=== PATIENT | female | born 1985 | race Caucasian/White ===

== ENCOUNTER → 2018-02-03 | Outpatient (CLI) | payer OTHER ==
[~2018-02-03] MED LIST: AMOCLA875 PO; ARIP10 PO; ASPI325 PO; BENZ100A PO; CLON.2 PO; CLOP75 PO; DICL75ER PO; DOXY100 PO; DULO30 PO; FISH1000 PO; GABA600 PO; HYDACE5 PO; LISHYD1012 PO; METO25ER PO; MULVITMINE PO; Neurontin 300300 MG PO; Norco 5-325 Ta1 EACH PO; OXYACE5T PO; OXYACE7.5T PO; PENVK500 PO; PRED20 PO; Percocet 5-3251 EACH PO; Pravachol40 MG PO; QUET100; RXHYDACE PO; RXPENVK250 PO; SERT100; VENL150ER PO; VITAMIN D250000 UNIT PO
[2018-02-03 13:34] LABS: BASOPHILS ABSOLUTE AUTO 0.06 K/mm3 (0.00-0.23); BASOPHILS PERCENT AUTO 1 % (0-2); EOSINOPHILS PERCENT AUTO 2 % (0-6); Hematocrit 36.8 % (33.0-51.0); Hemoglobin 12.4 g/dL (11.5-16.0); IMMATURE GRAN ABSOLUTE AUTO 0.03 K/mm3 (0.00-0.10); IMMATURE GRAN PERCENT AUTO 0 % (0-1); LYMPHOCYTES PERCENT AUTO 43 % (21-46); MONOCYTES ABSOLUTE AUTO 0.52 K/mm3 (0.16-1.47); MONOCYTES PERCENT AUTO 6 % (4-13); Mean Corpuscular HGB 30.4 pg (26.0-34.0); Mean Corpuscular HGB Conc 33.7 g/dL (31.5-36.5); Mean Corpuscular Volume 90 fL (80-100); Mean Platelet Volume 9.2 fL (9.1-12.4); NEUTROPHILS ABSOLUTE AUTO 4.35 K/mm3 (1.96-9.15); NEUTROPHILS PERCENT AUTO 48 % (41-73); Platelet Count 426 K/mm3 (150-400); RDW Coefficient Variation 13.8 % (11.7-14.2); RDW Standard Deviation 45.4 fL (35.1-46.3); Red Blood Cell Count 4.08 M/mm3 (3.80-5.20); White Blood Cell Count 9.06 K/mm3 (4.00-11.30)
[2018-02-03 14:23] LABS: Anion Gap 11 mmol/L (6-16); Blood Urea Nitrogen 13 mg/dL (8-24); Bun/Creatinine Ratio 12.6 (12.0-20.0); CO2, Blood 24 mmol/L (21-32); Calcium, Blood 8.7 mg/dL (8.5-10.1); Chloride, Blood 102 mmol/L (98-108); Creatinine, Blood 1.03 mg/dL (0.40-1.00); Glomerular Filtration Rate >60 (60-); Glucose, Blood 89 mg/dL (70-99); Potassium, Blood 3.8 mmol/L (3.5-5.5); Sodium, Blood 137 mmol/L (136-145)
[2018-02-03 14:26] LABS: Troponin I <0.017 ng/mL (0.000-0.040)
== END ==
LOC: LAB EV 13:25 → LAB SHORT 13:25
PROVIDERS: Family Medicine
DX: R07.9 Chest pain, unspecified (principal)
CPT/HCPCS: 80048; 84484; 85025; 85379

== ENCOUNTER 2018-05-07 17:10 | Emergency (ER) | payer OTHER ==
[~2018-05-07] VITALS: Ht 157.5 cm; Wt 90.7 kg
[~2018-05-07 17:10] MED LIST changes: +TOPIRAMATE ER100 MG PO
[2018-05-07 18:23] LABS: Albumin, Blood 3.7 g/dL (3.4-5.0); Bilirubin, Total 0.2 mg/dL (0.1-1.0); Bun/Creatinine Ratio 14.5 (12.0-20.0); Calcium, Blood 8.7 mg/dL (8.5-10.1); Creatinine, Blood 1.17 mg/dL (0.40-1.00); Globulin, Blood 3.8 g/dL (2.2-4.0); Potassium, Blood 3.8 mmol/L (3.5-5.5); Total Protein, Blood 7.5 g/dL (6.4-8.2)
[2018-05-07 18:44] LABS: BASOPHILS ABSOLUTE AUTO 0.07 K/mm3 (0.00-0.23); BASOPHILS PERCENT AUTO 1 % (0-2); EOSINOPHILS ABSOLUTE AUTO 0.26 K/mm3 (0.00-0.68); EOSINOPHILS PERCENT AUTO 2 % (0-6); Hematocrit 32.3 % (33.0-51.0); Hemoglobin 10.7 g/dL (11.5-16.0); IMMATURE GRAN ABSOLUTE AUTO 0.06 K/mm3 (0.00-0.10); IMMATURE GRAN PERCENT AUTO 0 % (0-1); LYMPHOCYTES ABSOLUTE AUTO 5.07 K/mm3 (0.84-5.20); LYMPHOCYTES PERCENT AUTO 35 % (21-46); MONOCYTES PERCENT AUTO 6 % (4-13); Mean Corpuscular HGB Conc 33.1 g/dL (31.5-36.5); Mean Corpuscular Volume 94 fL (80-100); Mean Platelet Volume 8.7 fL (9.1-12.4); NEUTROPHILS ABSOLUTE AUTO 8.41 K/mm3 (1.96-9.15); NEUTROPHILS PERCENT AUTO 57 % (41-73); Platelet Count 436 K/mm3 (150-400); RDW Coefficient Variation 13.5 % (11.7-14.2); RDW Standard Deviation 46.5 fL (35.1-46.3); Red Blood Cell Count 3.45 M/mm3 (3.80-5.20); White Blood Cell Count 14.67 K/mm3 (4.00-11.30)
[2018-05-07] MEDS ORDERED: Cyclobenzaprine5 MG PO (21:23)
== END 2018-05-07 21:36 | disposition home or self-care (01) ==
LOC: ER 17:10
PROVIDERS: Emergency Medicine
DX: G89.29 Other chronic pain (principal); M25.551 Pain in right hip; I25.10 Atherosclerotic heart disease of native coronary artery without angina pectoris; F32.9 Major depressive disorder, single episode, unspecified; F17.210 Nicotine dependence, cigarettes, uncomplicated; Z88.5 Allergy status to narcotic agent; Z79.82 Long term (current) use of aspirin; Z79.899 Other long term (current) drug therapy
CPT/HCPCS: 72193; 80053; 83690; 85025; 96374; 99284-25; J1885; Q9967

== ENCOUNTER → 2018-10-09 | Outpatient (CLI) | payer OTHER ==
[~2018-10-09] MED LIST changes: +BUDE6HFA INH; +Cyclobenzaprine5 MG PO; +Flovent Disku250 MCG INH; +HYDHCL25 PO; +HYDR1TAB94 PO; +ONE DAILY FOR1 EACH PO; +SERT50 PO; +ZESTORETIC 20-1 EACH PO
== END ==
LOC: LAB SHORT 13:00 → PLD 13:00
DX: L60.2 Onychogryphosis (principal); B35.1 Tinea unguium
CPT/HCPCS: 88305; 88312

== ENCOUNTER 2019-03-15 20:15 | Emergency (ER) | payer OTHER ==
[~2019-03-15] VITALS: Ht 154.9 cm; Wt 92.1 kg
[~2019-03-15 20:15] MED LIST changes: +AMIT25 PO; +CYCL10 PO; +Cymbalta60 MG; +FENO160 PO; +FISH OIL 1,0001 EACH PO; +Naprosyn500 MG PO
[2019-03-15] MEDS ORDERED: Norco 5-325 Ta1 EACH PO (20:54)
[2019-03-15] MEDS ORDERED: LIDO700A20 TOP (20:55)
== END 2019-03-15 21:13 | disposition home or self-care (01) ==
LOC: ER 20:15
DX: M54.5 Low back pain (principal); V49.9XXA Car occupant (driver) (passenger) injured in unspecified traffic accident, initial encounter; Z79.899 Other long term (current) drug therapy; Z79.82 Long term (current) use of aspirin; F32.9 Major depressive disorder, single episode, unspecified; I25.10 Atherosclerotic heart disease of native coronary artery without angina pectoris; F17.210 Nicotine dependence, cigarettes, uncomplicated
CPT/HCPCS: 99283; A9270

== ENCOUNTER 2019-07-18 11:29 | Inpatient (IN) | payer OTHER ==
[~2019-07-18] VITALS: Ht 154.9 cm; Wt 101.3 kg
[~2019-07-18 11:29] MED LIST changes: -Cymbalta60 MG; +Cymbalta60 MG PO; +LIDO700A20 TOP; +TOPI100 PO; -TOPIRAMATE ER100 MG PO
[2019-07-18 12:03] LABS: BASOPHILS ABSOLUTE AUTO 0.06 K/mm3 (0.00-0.23); BASOPHILS PERCENT AUTO 1 % (0-2); EOSINOPHILS ABSOLUTE AUTO 0.64 K/mm3 (0.00-0.68); EOSINOPHILS PERCENT AUTO 7 % (0-6); Hematocrit 32.2 % (33.0-51.0); IMMATURE GRAN ABSOLUTE AUTO 0.03 K/mm3 (0.00-0.10); IMMATURE GRAN PERCENT AUTO 0 % (0-1); LYMPHOCYTES ABSOLUTE AUTO 4.41 K/mm3 (0.84-5.20); LYMPHOCYTES PERCENT AUTO 47 % (21-46); MONOCYTES ABSOLUTE AUTO 0.54 K/mm3 (0.16-1.47); MONOCYTES PERCENT AUTO 6 % (4-13); Mean Corpuscular HGB 27.5 pg (26.0-34.0); Mean Corpuscular HGB Conc 31.1 g/dL (31.5-36.5); Mean Corpuscular Volume 89 fL (80-100); Mean Platelet Volume 9.1 fL (9.1-12.4); NEUTROPHILS ABSOLUTE AUTO 3.66 K/mm3 (1.96-9.15); NEUTROPHILS PERCENT AUTO 39 % (41-73); Platelet Count 360 K/mm3 (150-400); RDW Coefficient Variation 13.9 % (11.7-14.2); RDW Standard Deviation 45.1 fL (35.1-46.3); Red Blood Cell Count 3.64 M/mm3 (3.80-5.20); White Blood Cell Count 9.34 K/mm3 (4.00-11.30)
[2019-07-18 12:21] LABS: Acetaminophen, Random <2.0 ug/mL (10.0-30.0); Alanine Aminotransfer (ALT/SGP 40 U/L (12-78); Albumin, Blood 3.4 g/dL (3.4-5.0); Alk Phos 72 U/L (50-136); Anion Gap 8 mmol/L (6-16); Aspartate Aminotrans (AST/SGOT 34 U/L (12-37); Bilirubin, Total 0.1 mg/dL (0.1-1.0); Blood Urea Nitrogen 47 mg/dL (8-24); Bun/Creatinine Ratio 12.7 (12.0-20.0); CO2, Blood 20 mmol/L (21-32); Calcium, Blood 8.3 mg/dL (8.5-10.1); Chloride, Blood 110 mmol/L (98-108); Ethanol (Alcohol), Blood, Med <3 mg/dL; Globulin, Blood 3.5 g/dL (2.2-4.0); Glomerular Filtration Rate 15 (60-); Glucose, Blood 100 mg/dL (70-99); Potassium, Blood 4.6 mmol/L (3.5-5.5); Salicylate <1.7 mg/dL (2.8-20.0); Sodium, Blood 138 mmol/L (136-145); Thyroxine (T4) 4.2 ug/dL (4.8-13.9); Total Protein, Blood 6.9 g/dL (6.4-8.2)
[2019-07-18 12:25] LABS: Thyroid Stimulating Hormone 0.833 uIU/mL (0.360-4.800)
[2019-07-18] MEDS ORDERED: BUSP5 PO (13:27)
[2019-07-18] MEDS ORDERED: VITAMIN D34000 UNIT PO (13:28)
[2019-07-18] MEDS ORDERED: PREG150 PO (13:30)
[2019-07-18] MEDS ORDERED: TRAM50 PO (13:30)
[2019-07-18] MEDS ORDERED: ALBU90OI INH (13:32)
[2019-07-18] MEDS ORDERED: VIRT-PHOS 250250 MG PO (13:33)
[2019-07-18 13:41] LABS: Magnesium, Blood 1.6 mg/dL (1.6-2.4); Phosphorus, Blood 4.8 mg/dL (2.5-4.9); Troponin I <0.015 ng/mL (0.000-0.040)
[2019-07-18 15:50] LABS: Source, Urine Clean Catch
[2019-07-18] MEDS ORDERED: Vitamin B-121000 MCG PO (15:50)
[2019-07-18 15:54] LABS: Appearance, Urine Clear (Clear); Bilirubin, Urine Neg (Neg); Blood, Urine 1+ (Neg); Color, Urine Yellow (P-Yellow); Glucose Qualitative, Urine Neg (Neg); Ketones, Urine Neg (Neg); Leukocyte Esterase, Urine 1+ (Neg); Nitrite, Urine Neg (Neg); Protein, Urine Neg (Neg); Specific Gravity, Urine 1.015 (1.003-1.022); Urobilinogen, Urine NORM (Normal)
[2019-07-18 16:09] LABS: U Amphetamine Screen Not Detected; U Barbituate Screen Not Detected; U Benzodiazapine Screen Not Detected; U Buprenorphine Screen Not Detected; U Cannabinoids Screen Not Detected; U Cocaine Screen Not Detected; U Methadone Screen Not Detected; U Methamphetamine Screen Not Detected; U Opiates Screen Not Detected; U Oxycodone Screen Not Detected; U Phencyclidine Screen Not Detected; U Propoxyphene Screen Not Detected
[2019-07-18 16:12] LABS: Bacteria Mod /hpf; Red Blood Cells, Urine 0-2 /hpf (0-2); Squamous Epithelial Cells Few /hpf (Few)
--- NOTE | 2019-07-18 17:03 | NUR ---
SHIFT SUMMARY RECIEVED REPORT FROM MONTY FAULKNER RN, AT 1440. PATIENT ARRIVED TO ROOM 346 AT 1458 AND TRANSFERED INDEPENDENTLY TO HOSPITAL BED. COMPLETED ADMIT ASSESSMENT, MEDICAL HISTORY AND MEDICATION REQ WITH PATIENT'S ASSISTANCE. THE PATIENT IS ALERT AND ORIENTED TO PERSON, PLACE, AND SITUATION. IV FLUIDS RUNNING ORDERED. ROBBY HOSE TO BLE. PATIENT INDEPENDENT IN ROOM. COOPERATIVE. ABLE TO MAKE NEEDS KNOWN.
--- NOTE | 2019-07-19 02:45 | NUR ---
Hospitalist call Called to update hospitalist about positive UA results which were still pending at the time of last provider note. Patient is remains slightly confused, as she was not oriented to her age at 20:00 neuro check, and was disoriented to time at 00:00 neuro check. She also reported burning with urination. No new orders received at the time of call.
--- NOTE | 2019-07-19 04:31 | NUR ---
Shift Summary Patient slept well overnight. Her orientation seemed to be a little off as previously noted.
[2019-07-19 04:48] LABS: Hematocrit 31.9 % (33.0-51.0); Hemoglobin 9.7 g/dL (11.5-16.0); Mean Corpuscular HGB Conc 30.4 g/dL (31.5-36.5); Mean Corpuscular Volume 89 fL (80-100); Mean Platelet Volume 9.2 fL (9.1-12.4); Platelet Count 398 K/mm3 (150-400); RDW Coefficient Variation 14.1 % (11.7-14.2); RDW Standard Deviation 45.8 fL (35.1-46.3); Red Blood Cell Count 3.59 M/mm3 (3.80-5.20); White Blood Cell Count 7.95 K/mm3 (4.00-11.30)
[2019-07-19 05:19] LABS: Albumin, Blood 3.2 g/dL (3.4-5.0); Anion Gap 5 mmol/L (6-16); Blood Urea Nitrogen 33 mg/dL (8-24); CO2, Blood 22 mmol/L (21-32); Calcium, Blood 8.3 mg/dL (8.5-10.1); Chloride, Blood 117 mmol/L (98-108); Creatinine, Blood 2.06 mg/dL (0.40-1.00); Glomerular Filtration Rate 29 (60-); Glucose, Blood 76 mg/dL (70-99); Potassium, Blood 5.1 mmol/L (3.5-5.5); Sodium, Blood 144 mmol/L (136-145)
--- NOTE | 2019-07-19 17:00 | NUR ---
PATIENT A/OX4 THIS SHIFT. SLEPT MOST OF THE DAY. SLEEPS VERY HARD AND DIFFICULT TO WAKE AT TIMES. REPORTS RIB/BACK PAIN THAT IS CHRONIC. TRAMADOL GIVEN WITH LITTLE RELIEF PER PATIENT. 20G IV TO L FA, NS @ 150ML/HR INFUSING. TOLERATING RENAL DIET. VOIDING WELL. UP INDPENDENTLY IN ROOM. USES CALL LIGHT APPROPRIATELY FOR ASSISTANCE. DENIES ANY HALLUCINATIONS THIS SHIFT.
--- NOTE | 2019-07-20 04:14 | NUR ---
PT up indep in room . continues on IVF for ALFONSO and cooperative. On menses, urine pink with some clots present. PT states burning with urination. Denies visual or auditory hallucinations. has 2 Children. Spouse in and supportive. Plans to dc home on DC. Chronic pain, takes atarax PRN for anxiety, held HS scheduled dose. Flexeril 10 mg also held due to sedation.
[2019-07-20 08:55] LABS: Albumin, Blood 2.9 g/dL (3.4-5.0); Anion Gap 4 mmol/L (6-16); Blood Urea Nitrogen 18 mg/dL (8-24); CO2, Blood 23 mmol/L (21-32); Calcium, Blood 8.2 mg/dL (8.5-10.1); Chloride, Blood 117 mmol/L (98-108); Glomerular Filtration Rate 42 (60-); Glucose, Blood 82 mg/dL (70-99); Phosphorus, Blood 2.9 mg/dL (2.5-4.9); Potassium, Blood 4.6 mmol/L (3.5-5.5); Sodium, Blood 144 mmol/L (136-145)
--- NOTE | 2019-07-20 12:05 | NUR ---
DISCHARGE NOTE PATIENT AMBULATED SELF OUT OF FACILITY. STATED WAS PICKING HER UP AT MAIN ENTRANCE. IV REMOVED. NO ACUTE ISSUES NOTED.
== END 2019-07-20 11:41 | disposition home or self-care (01) | DRG 682 ==
LOC: ER 11:29 → MEDS 11:30 → ENPENDDIS 07-20 11:21 → MEDS 07-20 11:41
PROVIDERS: Emergency Medicine; ADMIT Internal Medicine
DX: N17.9 Acute kidney failure, unspecified (principal); G92 Toxic encephalopathy; E87.2 Acidosis; E86.0 Dehydration; I95.9 Hypotension, unspecified; F32.9 Major depressive disorder, single episode, unspecified; G89.4 Chronic pain syndrome; M54.9 Dorsalgia, unspecified; J44.9 Chronic obstructive pulmonary disease, unspecified; E78.5 Hyperlipidemia, unspecified; G44.89 Other headache syndrome; I25.10 Atherosclerotic heart disease of native coronary artery without angina pectoris; Z95.5 Presence of coronary angioplasty implant and graft; Z79.82 Long term (current) use of aspirin; Z79.899 Other long term (current) drug therapy
CPT/HCPCS: 36415; 71046; 80053; 80069; 81001; 81025; 82550; 83735; 84100; 84436; 84443; 84484; 84703; 85025; 85027; 87086; 93005; 93010; 94640; 94760; 96360; 99285-25; G0480; J7030

== ENCOUNTER → 2019-12-23 | Outpatient (CLI) | payer OTHER ==
[~2019-12-23] MED LIST changes: +ALBU90OI INH; +BUSP5 PO; +PREG150 PO; +TRAM50 PO; +VIRT-PHOS 250250 MG PO; +VITAMIN D34000 UNIT PO; +Vitamin B-121000 MCG PO
== END | disposition home or self-care (01) ==
LOC: LAB SHORT 19:44 → LAB 19:44
DX: J02.9 Acute pharyngitis, unspecified (principal)
CPT/HCPCS: 87081

== ENCOUNTER 2022-05-11 18:47 | Emergency (ER) | payer OTHER ==
[~2022-05-11] VITALS: Ht 157.5 cm; Wt 108.9 kg
[2022-05-11 20:30] LABS: BASOPHILS PERCENT AUTO 1 % (0-2); EOSINOPHILS ABSOLUTE AUTO 0.16 K/mm3 (0.00-0.68); EOSINOPHILS PERCENT AUTO 1 % (0-6); Hematocrit 41.6 % (33.0-51.0); Hemoglobin 14.2 g/dL (11.5-16.0); IMMATURE GRAN ABSOLUTE AUTO 0.05 K/mm3 (0.00-0.10); IMMATURE GRAN PERCENT AUTO 0 % (0-1); LYMPHOCYTES PERCENT AUTO 32 % (21-46); MONOCYTES ABSOLUTE AUTO 0.77 K/mm3 (0.16-1.47); MONOCYTES PERCENT AUTO 5 % (4-13); Mean Corpuscular HGB 29.2 pg (26.0-34.0); Mean Corpuscular HGB Conc 34.1 g/dL (31.5-36.5); Mean Corpuscular Volume 86 fL (80-100); Mean Platelet Volume 9.9 fL (9.1-12.4); NEUTROPHILS ABSOLUTE AUTO 8.91 K/mm3 (1.96-9.15); NEUTROPHILS PERCENT AUTO 61 % (41-73); Platelet Count 516 K/mm3 (150-400); RDW Coefficient Variation 12.8 % (11.7-14.2); RDW Standard Deviation 39.8 fL (35.1-46.3); Red Blood Cell Count 4.86 M/mm3 (3.80-5.20); White Blood Cell Count 14.69 K/mm3 (4.00-11.30)
[2022-05-11 20:48] LABS: Albumin, Blood 4.1 g/dL (3.4-5.0); Bilirubin, Total 0.3 mg/dL (0.1-1.0); Bun/Creatinine Ratio 10.5 (12.0-20.0); Calcium, Blood 9.6 mg/dL (8.5-10.1); Creatinine, Blood 0.76 mg/dL (0.40-1.00); Globulin, Blood 4.2 g/dL (2.2-4.0); Potassium, Blood 3.5 mmol/L (3.5-5.5); Total Protein, Blood 8.3 g/dL (6.4-8.2)
[2022-05-11] MEDS ORDERED: Aspir 8181 MG PO (22:40)
[2022-05-11] MEDS ORDERED: Robaxin750 MG PO (22:40)
== END 2022-05-11 23:10 | disposition home or self-care (01) ==
LOC: ER 18:47
PROVIDERS: Student in an Organized Health Care Education/Training Program
DX: R07.89 Other chest pain (principal); M62.830 Muscle spasm of back; I25.10 Atherosclerotic heart disease of native coronary artery without angina pectoris; J44.9 Chronic obstructive pulmonary disease, unspecified; E78.5 Hyperlipidemia, unspecified; F17.210 Nicotine dependence, cigarettes, uncomplicated; Z79.82 Long term (current) use of aspirin; Z79.899 Other long term (current) drug therapy; Z95.5 Presence of coronary angioplasty implant and graft
CPT/HCPCS: 36415; 71045; 80053; 84484; 85025; 93005; 93010; A9270

== ENCOUNTER → 2022-07-31 | Outpatient (CLI) | payer OTHER ==
[~2022-07-31] MED LIST changes: +Aspir 8181 MG PO; +Robaxin750 MG PO
[2022-07-31 18:39] LABS: BASOPHILS ABSOLUTE AUTO 0.09 K/mm3 (0.00-0.23); BASOPHILS PERCENT AUTO 1 % (0-2); EOSINOPHILS ABSOLUTE AUTO 0.09 K/mm3 (0.00-0.68); EOSINOPHILS PERCENT AUTO 1 % (0-6); Hematocrit 38.7 % (33.0-51.0); Hemoglobin 13.2 g/dL (11.5-16.0); IMMATURE GRAN ABSOLUTE AUTO 0.03 K/mm3 (0.00-0.10); IMMATURE GRAN PERCENT AUTO 0 % (0-1); LYMPHOCYTES ABSOLUTE AUTO 3.15 K/mm3 (0.84-5.20); LYMPHOCYTES PERCENT AUTO 26 % (21-46); MONOCYTES ABSOLUTE AUTO 0.58 K/mm3 (0.16-1.47); MONOCYTES PERCENT AUTO 5 % (4-13); Mean Corpuscular HGB 28.6 pg (26.0-34.0); Mean Corpuscular HGB Conc 34.1 g/dL (31.5-36.5); Mean Corpuscular Volume 84 fL (80-100); Mean Platelet Volume 9.6 fL (9.1-12.4); NEUTROPHILS ABSOLUTE AUTO 8.27 K/mm3 (1.96-9.15); NEUTROPHILS PERCENT AUTO 68 % (41-73); Platelet Count 458 K/mm3 (150-400); RDW Coefficient Variation 12.8 % (11.7-14.2); RDW Standard Deviation 39.1 fL (35.1-46.3); Red Blood Cell Count 4.61 M/mm3 (3.80-5.20); White Blood Cell Count 12.21 K/mm3 (4.00-11.30)
[2022-07-31 20:54] LABS: Alanine Aminotransfer (ALT/SGP 23 U/L (12-78); Albumin, Blood 3.9 g/dL (3.4-5.0); Alk Phos 107 U/L (50-136); Anion Gap 10 mmol/L (6-16); Aspartate Aminotrans (AST/SGOT 16 U/L (12-37); Bilirubin, Total 0.5 mg/dL (0.1-1.0); Blood Urea Nitrogen 6 mg/dL (8-24); Bun/Creatinine Ratio 7.9 (12.0-20.0); CHOL/HDL RATIO 6.9; CO2, Blood 23 mmol/L (21-32); Chloride, Blood 105 mmol/L (98-108); Cholesterol 199 mg/dL (50-200); Creatinine, Blood 0.76 mg/dL (0.40-1.00); Globulin, Blood 3.8 g/dL (2.2-4.0); Glomerular Filtration Rate 103 (60-); Glucose, Blood 92 mg/dL (70-99); HDL Cholesterol 29 mg/dL (>39); LDL/HDL RATIO 3.9; Low Density Lipoprotein Chol 112 mg/dL (0-110); Potassium, Blood 3.5 mmol/L (3.5-5.5); Sodium, Blood 138 mmol/L (136-145); Total Protein, Blood 7.7 g/dL (6.4-8.2); Triglycerides 289 mg/dL (30-140); Very Low Density Lipoprot Chol 57 mg/dL (6-28)
== END | disposition home or self-care (01) ==
LOC: LAB 13:05 → LAB SHORT 13:05
PROVIDERS: Physician Assistant
DX: Z13.1 Encounter for screening for diabetes mellitus (principal); E78.5 Hyperlipidemia, unspecified; Z79.899 Other long term (current) drug therapy
CPT/HCPCS: 80053; 80061; 82306; 83036; 84443; 85025

== ENCOUNTER 2023-08-27 19:58 | Emergency (ER) | payer OTHER ==
[~2023-08-27] VITALS: Ht 157.5 cm; Wt 90.7 kg
[2023-08-27 20:45] LABS: BASOPHILS ABSOLUTE AUTO 0.06 K/mm3 (0.00-0.23); BASOPHILS PERCENT AUTO 1 % (0-2); EOSINOPHILS ABSOLUTE AUTO 0.16 K/mm3 (0.00-0.68); EOSINOPHILS PERCENT AUTO 2 % (0-6); Hematocrit 37.5 % (33.0-51.0); Hemoglobin 12.2 g/dL (11.5-16.0); IMMATURE GRAN ABSOLUTE AUTO 0.02 K/mm3 (0.00-0.10); IMMATURE GRAN PERCENT AUTO 0 % (0-1); LYMPHOCYTES ABSOLUTE AUTO 3.76 K/mm3 (0.84-5.20); LYMPHOCYTES PERCENT AUTO 37 % (21-46); MONOCYTES ABSOLUTE AUTO 0.52 K/mm3 (0.16-1.47); MONOCYTES PERCENT AUTO 5 % (4-13); Mean Corpuscular HGB 29.3 pg (26.0-34.0); Mean Corpuscular HGB Conc 32.5 g/dL (31.5-36.5); Mean Corpuscular Volume 90 fL (80-100); Mean Platelet Volume 9.4 fL (9.1-12.4); NEUTROPHILS ABSOLUTE AUTO 5.54 K/mm3 (1.96-9.15); NEUTROPHILS PERCENT AUTO 55 % (41-73); Platelet Count 350 K/mm3 (150-400); RDW Coefficient Variation 13.1 % (11.7-14.2); RDW Standard Deviation 43.2 fL (35.1-46.3); Red Blood Cell Count 4.17 M/mm3 (3.80-5.20); White Blood Cell Count 10.06 K/mm3 (4.00-11.30)
[2023-08-27 21:05] LABS: Albumin, Blood 3.5 g/dL (3.4-5.0); Albumin/Globulin Ratio 0.9 (0.8-1.8); Bilirubin, Total 0.3 mg/dL (0.1-1.0); Bun/Creatinine Ratio 10.5 (12.0-20.0); Calcium, Blood 8.9 mg/dL (8.5-10.1); Creatinine, Blood 0.76 mg/dL (0.40-1.00); Globulin, Blood 3.7 g/dL (2.2-4.0); Potassium, Blood 4.1 mmol/L (3.5-5.5); Total Protein, Blood 7.2 g/dL (6.4-8.2)
[2023-08-27] MEDS ORDERED: BUSPIRONE HCL10 M6 PO (21:37)
[2023-08-27] MEDS ORDERED: BUPROPION HCL200 M1 PO (21:37)
[2023-08-27] MEDS ORDERED: CELEXA40 M9 PO (21:38)
[2023-08-27] MEDS ORDERED: ATOR40TA PO (21:38)
[2023-08-27] MEDS ORDERED: Prinivil10 MG PO (21:38)
[2023-08-27] MEDS ORDERED: ASPIRIN REGIMEN81 MG PO (21:38)
[2023-08-27] MEDS ORDERED: VITAMIN D362.5 MC1 PO (21:39)
[2023-08-27] MEDS ORDERED: TOPROL XL50 M1 PO (21:40)
[2023-08-28 00:30] VITALS: BP 196/113
== END 2023-08-28 00:45 | disposition home or self-care (01) ==
LOC: ER 19:58
PROVIDERS: Student in an Organized Health Care Education/Training Program
DX: R07.9 Chest pain, unspecified (principal); I10 Essential (primary) hypertension; I25.10 Atherosclerotic heart disease of native coronary artery without angina pectoris; Z95.5 Presence of coronary angioplasty implant and graft; Z79.899 Other long term (current) drug therapy; Z79.82 Long term (current) use of aspirin; F17.210 Nicotine dependence, cigarettes, uncomplicated
CPT/HCPCS: 71046; 80053; 84484; 85025; 93005; 93010; 96374; 99285-25; A9270; J1885

== ENCOUNTER → 2024-11-26 | Outpatient (CLI) | payer OTHER ==
[~2024-11-26] MED LIST changes: +ASPIRIN REGIMEN81 MG PO; +ATOR40TA PO; +BUPROPION HCL200 M1 PO; +BUSPIRONE HCL10 M6 PO; +CELEXA40 M9 PO; +Prinivil10 MG PO; +TOPROL XL50 M1 PO; +VITAMIN D362.5 MC1 PO
[2024-11-29 12:13] LABS: Alanine Aminotransfer (ALT/SGP 56 U/L (12-78); Albumin, Blood 3.6 g/dL (3.4-5.0); Alk Phos 89 U/L (50-136); Anion Gap 12 mmol/L (3-11); Aspartate Aminotrans (AST/SGOT 43 U/L (12-37); Bilirubin, Total 0.3 mg/dL (0.1-1.0); Blood Urea Nitrogen 8 mg/dL (8-24); Bun/Creatinine Ratio 11.1 (12.0-20.0); CHOL/HDL RATIO 4.8; CO2, Blood 23 mmol/L (21-32); Calcium, Blood 8.7 mg/dL (8.5-10.1); Chloride, Blood 106 mmol/L (98-108); Cholesterol 155 mg/dL (50-200); Creatinine, Blood 0.72 mg/dL (0.40-1.00); Globulin, Blood 3.6 g/dL (2.2-4.0); Glomerular Filtration Rate 109 (60-); Glucose, Blood 121 mg/dL (70-99); HDL Cholesterol 32 mg/dL (>39); LDL/HDL RATIO 1.8; Low Density Lipoprotein Chol 56 mg/dL (0-110); Potassium, Blood 4.4 mmol/L (3.5-5.5); Sodium, Blood 137 mmol/L (136-145); Total Protein, Blood 7.2 g/dL (6.4-8.2); Triglycerides 333 mg/dL (30-140); Very Low Density Lipoprot Chol 66 mg/dL (6-28)
[2024-11-29 13:19] LABS: BASOPHILS ABSOLUTE AUTO 0.07 K/mm3 (0.00-0.23); BASOPHILS PERCENT AUTO 2 % (0-2); EOSINOPHILS ABSOLUTE AUTO 0.16 K/mm3 (0.00-0.68); EOSINOPHILS PERCENT AUTO 4 % (0-6); Hematocrit 42.6 % (33.0-51.0); Hemoglobin 13.7 g/dL (11.5-16.0); IMMATURE GRAN ABSOLUTE AUTO 0.13 K/mm3 (0.00-0.10); IMMATURE GRAN PERCENT AUTO 3 % (0-1); LYMPHOCYTES PERCENT AUTO 31 % (21-46); MONOCYTES ABSOLUTE AUTO 0.36 K/mm3 (0.16-1.47); MONOCYTES PERCENT AUTO 8 % (4-13); Mean Corpuscular HGB 29.8 pg (26.0-34.0); Mean Corpuscular HGB Conc 32.2 g/dL (31.5-36.5); Mean Corpuscular Volume 93 fL (80-100); Mean Platelet Volume 10.9 fL (9.1-12.4); NEUTROPHILS PERCENT AUTO 53 % (41-73); Platelet Count 378 K/mm3 (150-400); RDW Coefficient Variation 13.2 % (11.7-14.2); RDW Standard Deviation 42.4 fL (35.1-46.3); White Blood Cell Count 4.52 K/mm3 (4.00-11.30)
== END ==
LOC: LAB SHORT 15:50 → LAB 15:50
PROVIDERS: Physician Assistant
DX: Z51.81 Encounter for therapeutic drug level monitoring (principal); Z79.899 Other long term (current) drug therapy
CPT/HCPCS: 80053; 80061; 83036; 84443; 85025

== ENCOUNTER → 2024-12-03 | Outpatient (CLI) | payer OTHER ==
[2024-12-05 11:39] LABS: HEPATITIS C AB CIA INTERP Negative (Negative); HEPATITIS C ANTIBODY CIA INDEX 0.14 IV
[2024-12-05 12:13] LABS: HIV 1,2 COMBO ANTIGEN/ANTIBODY Negative (Negative)
== END ==
LOC: LAB 15:18 → LAB SHORT 15:18
PROVIDERS: Physician Assistant
DX: Z11.4 Encounter for screening for human immunodeficiency virus [HIV] (principal); Z11.59 Encounter for screening for other viral diseases; Z79.899 Other long term (current) drug therapy
CPT/HCPCS: 82306; 86803; 87389